=== PATIENT | female | born 1955 | race Caucasian/White ===

== ENCOUNTER → 2017-06-09 | Outpatient (CLI) | payer OTHER | LOC: BICRAD 16:05 | PROVIDERS: ATTEND Family Medicine | DX: J18.9 Pneumonia, unspecified organism (principal) | CPT/HCPCS: 71020 ==

== ENCOUNTER 2017-07-08 14:13 | Outpatient (CLI) | payer OTHER | END 2017-07-08 14:14 | disposition home or self-care (01) | LOC: BICMAMMO 14:13 | PROVIDERS: ATTEND Family Medicine | DX: Z12.31 Encounter for screening mammogram for malignant neoplasm of breast (principal) | CPT/HCPCS: 77063; 77067 ==

== ENCOUNTER 2018-07-24 12:46 | Outpatient (CLI) | payer OTHER | END 2018-07-24 12:47 | disposition home or self-care (01) | LOC: BICMAMMO 12:46 | PROVIDERS: ATTEND Family Medicine | DX: Z12.31 Encounter for screening mammogram for malignant neoplasm of breast (principal); R92.1 Mammographic calcification found on diagnostic imaging of breast | CPT/HCPCS: 77063; 77067 ==

== ENCOUNTER 2019-08-22 13:14 | Outpatient (CLI) | payer OTHER ==
--- NOTE | 2019-08-22 13:42 | BD ---
EXAM: Bone densitometry using DEXA HISTORY: 63 yo female. Screening for postmenopausal osteoporosis FINDINGS: L1--bone mineral density 0.896 g/sq cm; T score -0.9 ; Z score 0.8 L2--bone mineral density 0.972 g/sq cm; T score -0.5 ; Z score 1.3 L3--bone mineral density 0.890 g/sq cm; T score -1.8 ; Z score 0.1 L4--bone mineral density 0.888 g/sq cm; T score -1.6 ; Z score 0.4 Total L1-L4--bone mineral density 0.912 g/sq cm; T score -1.2 ; Z score 0.6 Left femoral neck--bone mineral density0.598; T score -2.3 ; Z score -0.7 Total proximal left femur--bone mineral density 0.896; T score -0.4 ; Z score 0.9 The 10 year fracture risk for a major osteoporotic fracture is 11% and for a hip fracture is 2%. IMPRESSION: Osteopenia
== END 2019-08-22 13:15 | disposition home or self-care (01) ==
LOC: BICMAMMO 13:14
PROVIDERS: ATTEND Student in an Organized Health Care Education/Training Program
DX: Z13.820 Encounter for screening for osteoporosis (principal); M85.89 Other specified disorders of bone density and structure, multiple sites
CPT/HCPCS: 77080

== ENCOUNTER 2019-11-05 07:23 | Outpatient (CLI) | payer OTHER ==
[2019-11-06 11:21] LABS: SARS-CoV-2 MS2 Positive; SARS-CoV-2 N Gene Negative; SARS-CoV-2 S Gene Negative; SARS-CoV-2 orf1ab Negative
== END 2019-11-05 07:24 | disposition home or self-care (01) ==
LOC: LABBT 07:23
PROVIDERS: ATTEND Student in an Organized Health Care Education/Training Program
DX: Z01.812 Encounter for preprocedural laboratory examination (principal); Z11.59 Encounter for screening for other viral diseases; R93.89 Abnormal findings on diagnostic imaging of other specified body structures
CPT/HCPCS: 87635; U0003

== ENCOUNTER 2019-11-08 10:03 | Day surgery (SDC) | payer OTHER ==
[2019-11-05 13:05] VITALS: BMI 32.3
[2019-11-05 13:56] LABS: Hemoglobin 13.3 g/dL (12.0-16.0); Mean Corpuscular HGB CONC 32.8 g/dL (32.0-36.0); Mean Corpuscular Hemoglobin 31.1 pg (27.0-31.0); Mean Corpuscular Volume 94.9 fL (78.0-98.0); Mean Platelet Volume 7.4 fL (7.4-10.4); Platelet Count 298 thou/uL (130-400); RBC Distribution Width 12.6 % (11.5-14.5); Red Blood Cell (RBC) Count 4.29 mill/uL (4.20-5.40); White Blood Cell (WBC) Count 8.2 thou/uL (4.8-10.8)
[2019-11-08] MEDS ORDERED: Fentanyl 100 MCG/2 ML VIAL ONE (10:48)
[2019-11-08] MEDS ORDERED: HYDROmorphone 0.5 MG/0.5 ML SYRINGE ONE (10:48)
[2019-11-08] MEDS ORDERED: Promethazine HCl 25 MG/ML VIAL ONE (10:48)
[2019-11-08] MEDS ORDERED: Midazolam HCl 2 mg/2 ml Vial ONE (10:48)
[2019-11-08] MEDS ORDERED: Bacitracin Zinc Ointment 30 gm TUBE ONE (12:54)
[2019-11-08] MEDS ORDERED: Ondansetron PF 4 MG/2 ML Vial ONE (12:58)
[2019-11-08] MEDS ORDERED: Lidocaine 1% PF 5 ML VIAL ONE (12:58)
[2019-11-08] MEDS ORDERED: Ketorolac Tromethamine 30 MG/ML VIAL ONE (12:58)
[2019-11-08] MEDS ORDERED: PROPOFOL 200 MG/20 ML VIAL ONE (12:58)
[2019-11-08] MEDS ORDERED: EPHEDRINE 25 MG/5 ML SYRINGE ONE (12:58)
--- NOTE | 2019-11-08 19:09 | OP ---
DATE OF PROCEDURE: 11/08/2019 PREOPERATIVE DIAGNOSIS: Thickened endometrium. POSTOPERATIVE DIAGNOSIS: Thickened endometrium. PROCEDURES: Hysteroscopy, D and C, TruClear resection of endometrial mass. ANESTHESIA: General LMA. LEGAL BILLING SPECIALIST SURGEON: None. COMPLICATIONS: None. DRAINS: None. PATHOLOGY: 1. Anterior endometrial mass. 2. Endometrial curettings. FINDINGS: Exam under anesthesia and normal postmenopausal uterus sounded to 8 cm. Cervix is normal-appearing. Endocervical canal is normal appearing. The endometrium was atrophic with the exception of a mass of the anterior fundal portion of the uterus. Bilateral tubal ostia were visualized and the fluid deficit for the case was 460 mL. A small superficial approximately 2 cm long laceration/skin separation, most likely due from traction with either prep or instrumentation. Bacitracin was placed over this and it was hemostatic. This was just to the right of the clitoris. DESCRIPTION OF PROCEDURE: The patient was taken to the operating room, where general anesthesia was obtained without difficulty. The patient was prepped and draped in a sterile fashion in the dorsal lithotomy position. A red rubber was used to drain the bladder. The speculum was placed in the vagina. The anterior lip of the cervix was grasped with single-tooth tenaculum. The cervix was progressively dilated with Aditya dilators and sounded to 8 cm. The 5-mm hysteroscope was assembled and primed and inserted into the uterus using normal saline as distention medium. The above findings were noted and photodocumentation was performed. A mini soft tissue incisor was then used to resect the mass and send it separately for pathology. The mass was easily resected. Following that, the hysteroscope was removed and sharp curettage was taken to all uterine jacobson. The tenaculum was removed off the cervix. Hemostasis was noted to be excellent. All instruments were removed out of the vagina. The patient tolerated the procedure well. Sponge and needle counts correct x2. The patient was taken to recovery room in stable condition. Blood loss for the case was 5 mL. Job ID: [id number]
== END 2019-11-08 14:53 | disposition home or self-care (01) ==
LOC: SDC 10:03
PROVIDERS: ATTEND Student in an Organized Health Care Education/Training Program
PROC: 0UB98ZX Excision of Uterus, Via Natural or Artificial Opening Endoscopic, Diagnostic (ICD-10-PCS; principal; 2019-11-08)
PROC: 0UDB7ZX Extraction of Endometrium, Via Natural or Artificial Opening, Diagnostic (ICD-10-PCS; principal; 2019-11-08)
DX: N84.0 Polyp of corpus uteri (principal); R93.89 Abnormal findings on diagnostic imaging of other specified body structures; N32.81 Overactive bladder; M85.80 Other specified disorders of bone density and structure, unspecified site; M35.00 Sjogren syndrome, unspecified; K76.0 Fatty (change of) liver, not elsewhere classified; K21.9 Gastro-esophageal reflux disease without esophagitis; E78.5 Hyperlipidemia, unspecified; K58.9 Irritable bowel syndrome, unspecified; Z79.810 Long term (current) use of selective estrogen receptor modulators (SERMs); Z79.82 Long term (current) use of aspirin; Z79.899 Other long term (current) drug therapy; Z88.0 Allergy status to penicillin
CPT/HCPCS: 36415; 85027; 86850; 86900; 86901; 88305; J1170; J1885; J2001; J2250; J2405; J2550; J2704; J3010

== ENCOUNTER 2021-10-15 13:37 | Outpatient (CLI) | payer MEDICARE | END 2021-10-15 13:38 | disposition home or self-care (01) | LOC: BICRAD 13:37 | PROVIDERS: ATTEND Internal Medicine | DX: R10.13 Epigastric pain (principal); T18.9XXA Foreign body of alimentary tract, part unspecified, initial encounter | CPT/HCPCS: 74018 ==

== ENCOUNTER 2022-01-06 14:44 | Outpatient (CLI) | payer MEDICARE | END 2022-01-06 14:45 | disposition home or self-care (01) | LOC: BICRAD 14:44 | PROVIDERS: ATTEND Family Medicine | DX: R05.3 Chronic cough (principal) | CPT/HCPCS: 71046 ==